=== PATIENT | male | born 1990 | race Caucasian/White ===

== ENCOUNTER 2018-11-25 14:13 | Emergency (ER) | payer MEDICAID ==
[2018-11-25 14:35] VITALS: BP 136/89; PULSE 94; RESP 16; TEMP 96.3; O2SAT 99
[2018-11-25 14:58] LABS: APPEARANCE,URINE Clear; BILIRUBIN,URINE NEGATIVE (NEGATIVE); COLOR,URINE Yellow; GLUCOSE, URINE (UA) NEGATIVE (NEGATIVE); KETONES,URINE NEGATIVE (NEGATIVE); LEUKOCYTE ESTERASE ,URINE NEGATIVE (NEGATIVE); NITRATE,URINE NEGATIVE (NEGATIVE); OCCULT BLOOD,URINE NEGATIVE (NEG-TRACE); UROBILINOGEN,URINE 0.2 (0.2-1.0 EU)
[2018-11-25 15:14] LABS: EPITHELIAL CELLS NEGATIVE (SQUAMOUS); RBC,URINE 0-3 (0-3AV/HPF); WBC,URINE 0-1 (0-5AV/HPF)
[2018-11-25 15:15] LABS: AMPHETAMINES POSITIVE (NEGATIVE); BACTERIA NEGATIVE (< 1+); BARBITUATES NEGATIVE (NEGATIVE); BENZODIAZEPINES NEGATIVE (NEGATIVE); CANNABINOL(THC) POSITIVE (NEGATIVE); COCAINE(COC) NEGATIVE (NEGATIVE); CRYSTALS NEGATIVE (0-3 AVE/HPF); METHADONE NEGATIVE (NEGATIVE); METHAMPHETAMINES POSITIVE (NEGATIVE); OPIATES(OPI) NEGATIVE (NEGATIVE); OXYCODONE(OXY) NEGATIVE (NEGATIVE); PROPOXYPHENE(PPX) NEGATIVE (NEGATIVE); TRICYCLIC ANTIDEPRESSANTS NEGATIVE (NEGATIVE)
[2018-11-25 15:31] LABS: BASOPHILS % (AUTO) 1 % (0-3); EOSINOPHILS % (AUTO) 1 % (0-9); HEMATOCRIT 41 % (39-53); HEMOGLOBIN 13.9 gm/dl (13.5-17.7); LYMPHOCYTES % (AUTO) 30.2 % (10-50); MEAN CORPUSCULAR HEMOGLOBIN 28.5 pg (27.0-32.0); MEAN CORPUSCULAR HGB CONC 33.6 gm/dl (32.0-36.0); MEAN CORPUSCULAR VOLUME 85 fL (80-100); MONOCYTES % (AUTO) 8.5 % (0-12); NEUTROPHILS % (AUTO) 60.2 % (37-80)
[2018-11-25 15:52] LABS: ALBUMIN 3.9 gm/dl (3.4-5.0); ALKALINE PHOSPHATASE 82 IU/L (46-116); ALT 17 IU/L (14-63); AST 14 IU/L (15-37); BILIRUBIN,TOTAL 0.4 mg/dl (0.2-1.0); BLOOD UREA NITROGEN 20 mg/dl (7-18); CALCIUM 9.4 mg/dl (8.5-10.1); CARBON DIOXIDE 32.1 mEq/L (21-32); CHLORIDE 102 mMol/L (98-107); CREATININE 1.01 mg/dl (0.80-1.30); GLUCOSE 100 mg/dl (74-106); SODIUM 139 mMol/L (136-145); THYROID STIMULATING HORMONE 2.213 uIU/ml (0.358-3.740); TOTAL PROTEIN 7.7 gm/dl (6.4-8.2)
[2018-11-25 15:55] LABS: ACETAMINOPHEN < 2 ug/ml (10-30); ALCOHOL < 0.003 gm/dl (0.000-0.08)
[2018-11-25] MEDS ORDERED: ACETAMINOPHEN 500 MG 500 MG TAB PO ONE (17:23)
[2018-11-25] MEDS ORDERED: ACETAMINOPHEN 500 MG 500 MG TAB ONE (17:23)
== END 2018-11-25 19:10 | disposition short-term general hospital (02) | DRG 897 ==
LOC: ED 14:13
DX: F19.20 Other psychoactive substance dependence, uncomplicated (principal)
CPT/HCPCS: 36415; 80053; 80305; 80307; 81001; 84443; 85025; 99283

== ENCOUNTER 2019-06-04 11:01 | Emergency (ER) | payer MEDICAID, OTHER ==
[2019-06-04 12:01] LABS: BASOPHILS % (AUTO) 1 % (0-3); EOSINOPHILS % (AUTO) 0 % (0-9); HEMATOCRIT 41 % (39-53); HEMOGLOBIN 13.5 gm/dl (13.5-17.7); LYMPHOCYTES % (AUTO) 15.2 % (10-50); MEAN CORPUSCULAR HEMOGLOBIN 29.5 pg (27.0-32.0); MEAN CORPUSCULAR HGB CONC 32.9 gm/dl (32.0-36.0); MEAN CORPUSCULAR VOLUME 90 fL (80-100); MONOCYTES % (AUTO) 9.1 % (0-12); NEUTROPHILS % (AUTO) 74.8 % (37-80)
[2019-06-04 12:24] LABS: ALBUMIN 4.1 gm/dl (3.4-5.0); ALKALINE PHOSPHATASE 74 IU/L (46-116); ALT 24 IU/L (14-63); AST 20 IU/L (15-37); BILIRUBIN,TOTAL 0.5 mg/dl (0.2-1.0); BLOOD UREA NITROGEN 14 mg/dl (7-18); CALCIUM 9.2 mg/dl (8.5-10.1); CARBON DIOXIDE 28.9 mEq/L (21-32); CHLORIDE 102 mMol/L (98-107); CREATININE 0.99 mg/dl (0.80-1.30); GLUCOSE 118 mg/dl (74-106); SALICYLATE < 2.8 mg/dl (2.8-30.0); THYROID STIMULATING HORMONE 2.962 uIU/ml (0.358-3.740); TOTAL PROTEIN 7.6 gm/dl (6.4-8.2)
[2019-06-04 12:25] LABS: ALCOHOL < 0.003 gm/dl (0.000-0.08)
[2019-06-04 15:08] LABS: APPEARANCE,URINE Clear; BILIRUBIN,URINE NEGATIVE (NEGATIVE); COLOR,URINE Yellow; GLUCOSE, URINE (UA) NEGATIVE (NEGATIVE); KETONES,URINE NEGATIVE (NEGATIVE); LEUKOCYTE ESTERASE ,URINE NEGATIVE (NEGATIVE); NITRATE,URINE NEGATIVE (NEGATIVE); OCCULT BLOOD,URINE NEGATIVE (NEG-TRACE); PH,URINE 7.5; UROBILINOGEN,URINE 0.2 (0.2-1.0 EU)
[2019-06-04 15:16] LABS: AMPHETAMINES POSITIVE (NEGATIVE); BARBITUATES NEGATIVE (NEGATIVE); BENZODIAZEPINES NEGATIVE (NEGATIVE); CANNABINOL(THC) NEGATIVE (NEGATIVE); COCAINE(COC) NEGATIVE (NEGATIVE); METHAMPHETAMINES POSITIVE (NEGATIVE); OPIATES(OPI) NEGATIVE (NEGATIVE); OXYCODONE(OXY) NEGATIVE (NEGATIVE); PROPOXYPHENE(PPX) NEGATIVE (NEGATIVE)
[2019-06-04 15:22] LABS: BACTERIA TRACE (< 1+); CRYSTALS NEGATIVE (0-3 AVE/HPF); EPITHELIAL CELLS 0-1 (SQUAMOUS); RBC,URINE 0-1 (0-3AV/HPF); WBC,URINE 0-1 (0-5AV/HPF)
[2019-06-05] MEDS ORDERED: QUETIAPINE FUMARATE 25 MG TAB PO SCH (00:15)
[2019-06-05] MEDS ORDERED: ZOLPIDEM TARTRATE 5 MG TAB PO ONE (00:15)
[2019-06-05] MEDS ORDERED: ZOLPIDEM TARTRATE 5 MG TAB ONE (00:19)
[2019-06-05] MEDS ORDERED: QUETIAPINE FUMARATE 25 MG TAB ONE (00:19)
[2019-06-05 12:39] VITALS: BP 97/59; PULSE 69; RESP 16; TEMP 97.1; O2SAT 99
== END 2019-06-05 14:20 | disposition short-term general hospital (02) | DRG 897 ==
LOC: ED 11:01
DX: F15.20 Other stimulant dependence, uncomplicated (principal); F19.20 Other psychoactive substance dependence, uncomplicated; R44.1 Visual hallucinations
CPT/HCPCS: 36415; 80053; 80305; 80307; 81001; 84443; 85025; 99284; A9270-GY